=== PATIENT | male | born 1965 | race Caucasian/White ===

== ENCOUNTER 2021-08-20 08:37 | Emergency (ER) | payer OTHER, MEDICAID ==
[~2021-08-20] VITALS: Ht 180.3 cm; Wt 73.0 kg
[2021-08-20 12:34] VITALS: BP 127/90
== END 2021-08-20 12:51 | disposition home or self-care (01) ==
LOC: ER 09:42
DX: F10.129 Alcohol abuse with intoxication, unspecified (principal); Y90.0 Blood alcohol level of less than 20 mg/100 ml; Z87.891 Personal history of nicotine dependence; Z48.02 Encounter for removal of sutures
CPT/HCPCS: 82962; 99283; Z7610